=== PATIENT | male | born 1975 | race American Indian/Alaskan Native ===

== ENCOUNTER 2021-09-15 20:57 | Emergency (ER) | payer SELFPAY ==
--- NOTE | 2021-09-15 21:38 | Emergency Department Report ---
ED General Adult HPI - General Chief complaint: Arrhythmia/Palpitations Stated complaint: TACHYCARDIA Time Seen by Provider: 09/15/21 21:24 Source: EMS Mode of arrival: Stretcher Limitations: No Limitations - History of Present Illness Initial comments: Patient is 46-year-old male with history of anxiety. Patient brought to the emergency room via EMS from home for evaluation of palpitation. Patient stated that he was arguing with his on the phone when all of a sudden he started having palpitation and became diaphoretic. Patient denied any chest pain or shortness of breath at that time. Patient stated that this happened to him before. Patient denied any drug abuse. Upon arrival to the ER patient stated that he is back to normal. EKG transmitted by EMS showed sinus tachycardia with a heart rate of 130. Severity scale (0 -10): 0 - Related Data Allergies Allergy/AdvReac Type Severity Reaction Status Date / Time No Known Allergies Allergy Verified 09/15/21 21:02 ED Review of Systems ROS: Stated complaint: TACHYCARDIA Other details as noted in HPI Comment: All other systems reviewed and negative Constitutional: denies: chills, fever Respiratory: denies: cough, shortness of breath, SOB with exertion, SOB at rest Cardiovascular: palpitations. denies: chest pain Gastrointestinal: denies: abdominal pain, nausea, vomiting Musculoskeletal: denies: back pain Neurological: denies: headache, weakness, numbness, paresthesias, confusion Psychiatric: anxiety. denies: depression, auditory hallucinations, visual hallucinations, homicidal thoughts, suicidal thoughts ED Past Medical Hx - Past Medical History Previous Medical History?: No Additional medical history: ED - Surgical History Past Surgical History?: No ED Physical Exam - General Limitations: No Limitations General appearance: alert, in no apparent distress - Head Head exam: Present: atraumatic, normocephalic, normal inspection - Eye Eye exam: Present: normal appearance, PERRL - ENT ENT exam: Present: normal exam, normal orophraynx, mucous membranes moist - Neck Neck exam: Present: normal inspection, full ROM. Absent: tenderness, meningismus - Respiratory Respiratory exam: Present: normal lung sounds bilaterally - Cardiovascular Cardiovascular Exam: Present: regular rate, normal rhythm, normal heart sounds - GI/Abdominal GI/Abdominal exam: Present: soft, normal bowel sounds. Absent: distended, tenderness, guarding, rebound, rigid, mass, bruit, pulsatile mass, hernia - Extremities Exam Extremities exam: Present: normal inspection, full ROM, normal capillary refill. Absent: tenderness, pedal edema, joint swelling, calf tenderness - Back Exam Back exam: Present: normal inspection. Absent: CVA tenderness (R), CVA tenderness (L) - Neurological Exam Neurological exam: Present: alert, oriented X3, CN II-XII intact, normal gait, r eflexes normal. Absent: motor sensory deficit - Psychiatric Psychiatric exam: Present: normal mood. Absent: depressed, agitated, anxious, flat affect, homicidal ideation, suicidal ideation - Skin Skin exam: Present: warm, intact, normal color ED Course Vital Signs 09/15/21 20:58 Pulse Rate 118 H Respiratory 18 Rate Blood Pressure 133/86 [Left] O2 Sat by Pulse 100 Oximetry ED Medical Decision Making - Medical Decision Making Patient is 46-year-old male with history of anxiety. Patient brought to the emergency room via EMS from home for evaluation of palpitation. Patient stated that he was arguing with his on the phone when all of a sudden he started having palpitation and became diaphoretic. Patient denied any chest pain or shortness of breath at that time. Patient stated that this happened to him before. Patient denied any drug abuse. Upon arrival to the ER patient stated that he is back to normal. EKG transmitted by EMS showed sinus tachycardia with a heart rate of 130. Patient remained stable in the ER with stable vital sign. Patient heart rate is in the 90. Sinus rhythm with no acute distress. Patient advised to follow-up with his primary doctor in the next 2 to 3 days and to return to the ER if he develop any new symptoms. Critical care attestation.: If time is entered above; I have spent that time in minutes in the direct care of this critically ill patient, excluding procedure time. ED Disposition Clinical Impression: Palpitation, Panic attack Disposition: HOME / SELF CARE / HOMELESS Is pt being admited?: No Condition: Stable Instructions: Panic Attack, [id number] Referrals: [facility] [Provider Group] - 3-5 Days
[2021-09-15 23:23] VITALS: BP 138/96
--- NOTE | 2021-09-17 10:52 | Electrocardiograph Report ---
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
== END 2021-09-15 23:22 | disposition home or self-care (01) ==
LOC: ED 20:57
DX: R00.2 Palpitations (principal); F41.0 Panic disorder [episodic paroxysmal anxiety]
CPT/HCPCS: 93005; 99283